=== PATIENT | female | born 1975 | race Two or more races ===

== ENCOUNTER 2019-06-20 12:59 | Emergency (ER) | payer MEDICAID ==
[~2019-06-20] VITALS: Ht 157.5 cm; Wt 95.2 kg
[~2019-06-20 12:59] MED LIST: ATOR10TA; LEVO25TA2
[2019-06-20 13:40] VITALS: BP 130/72
== END 2019-06-20 13:59 | disposition home or self-care (01) ==
LOC: ER 12:59
DX: Z03.818 Encounter for observation for suspected exposure to other biological agents ruled out (principal); R11.0 Nausea
CPT/HCPCS: 99281